=== PATIENT | male | born 1945 | race Caucasian/White ===

== ENCOUNTER 2023-11-13 15:06 | Outpatient (RCR) | payer MEDICARE, OTHER, SELFPAY | END 2023-11-13 23:59 | disposition home or self-care (01) | LOC: CRHB 15:06 | PROVIDERS: ATTENDING PHYSICIAN Surgery Vascular Surgery; FAMILY PHYSICIAN Family Medicine | DX: I70.213 Atherosclerosis of native arteries of extremities with intermittent claudication, bilateral legs (principal) | CPT/HCPCS: 93668 ==

== ENCOUNTER 2023-11-29 13:36 | Outpatient (RCR) | payer MEDICARE, OTHER, SELFPAY | END 2023-11-29 23:59 | disposition home or self-care (01) | LOC: CRHB 13:36 | PROVIDERS: ATTENDING PHYSICIAN Surgery Vascular Surgery | DX: I70.213 Atherosclerosis of native arteries of extremities with intermittent claudication, bilateral legs (principal) | CPT/HCPCS: 93668 ==

== ENCOUNTER → 2024-03-30 10:07 | Outpatient (REF) | payer MEDICARE, OTHER, SELFPAY | LOC: RCS 10:07 | PROVIDERS: ATTENDING PHYSICIAN Internal Medicine Cardiovascular Disease; FAMILY PHYSICIAN Family Medicine | DX: R00.2 Palpitations (principal) | CPT/HCPCS: 93225; 93226 ==

== ENCOUNTER → 2024-05-25 13:37 | Outpatient (REF) | payer MEDICARE, OTHER, SELFPAY | LOC: RAD 13:37 | PROVIDERS: ATTENDING PHYSICIAN Surgery Vascular Surgery; FAMILY PHYSICIAN Family Medicine | DX: I73.9 Peripheral vascular disease, unspecified (principal); I77.9 Disorder of arteries and arterioles, unspecified; I65.23 Occlusion and stenosis of bilateral carotid arteries | CPT/HCPCS: 93880; 93922; 93925 ==

== ENCOUNTER 2024-07-07 08:25 | Outpatient (RCR) | payer MEDICARE, OTHER, SELFPAY ==
[2024-07-07 08:30] VITALS: BP 128/88
[2024-07-07] MEDS: SODIUM BICARBONATE 1150 MEQ IV (08:45)
== END 2024-07-16 23:59 | disposition home or self-care (01) ==
LOC: OID 08:25
PROVIDERS: ATTENDING PHYSICIAN Surgery Vascular Surgery; FAMILY PHYSICIAN Family Medicine
DX: I73.9 Peripheral vascular disease, unspecified (principal); I77.9 Disorder of arteries and arterioles, unspecified; Z92.89 Personal history of other medical treatment
CPT/HCPCS: 70496; 70498; 96360; 96365; 96366; Q9967

== ENCOUNTER 2024-09-02 09:12 | Inpatient (IN) | payer MEDICARE, OTHER, SELFPAY ==
[2024-08-28 09:36] VITALS: BMI 27.4
[2024-08-28 10:02] LABS: APTT 32.5 Sec (23.4-35.0); INR 1.04; PT 13.9 Sec (11.4-14.6)
[2024-08-28 10:04] LABS: % Basophils 0.5 % (0-2); % Eosinophils 1.9 % (0-6); % Immature Granulocytes 0.3 % (0-0.5); % Monocytes 7.8 % (1.7-9.3); % Neutrophils 59.5 % (42.2-75.2); Absolute Eosinophils 0.1 10^3/uL (0-0.7); Absolute Lymphocytes 1.9 10^3/uL (1.2-3.4); Absolute Monocytes 0.5 10^3/uL (0.1-0.6); Absolute Neutrophils 3.8 10^3/uL (1.4-6.5); Hematocrit 31.5 % (39.0-52.0); Hemoglobin 10.3 g/dL (13.0-18.0); Mean Corp Hgb Conc. 32.7 g/dL (33.0-37.0); Mean Corpuscular Hgb 29.7 pg (27.0-31.0); Mean Corpuscular Volume 90.8 fL (80.0-94.0); Mean Platelet Volume 10.6 fL (7.4-10.4); Nucleated Red Blood Cells % 0 % (-); Platelet Count 204 10^3/uL (130-400); Red Blood Cell Count 3.47 10^6/uL (4.70-6.10); Red Cell Dist. Width 13.5 % (11.5-14.5); White Blood Cell Count 6.4 10^3/uL (4.8-10.8)
[2024-08-28 10:24] LABS: Blood Urea Nitrogen 37 mg/dl (9-20); Calcium 8.7 mg/dl (8.4-10.2); Carbon Dioxide 23 mmol/L (22-30); Chloride 105 mmol/L (98-107); Estimated Creatinine Clearance 28 ml/min; Glucose 109 mg/dl (70-99); Potassium 5.3 mmol/L (3.5-5.1); Sodium 138 mmol/L (135-145); eGFR 31.23
--- NOTE | 2024-08-28 11:01 | PTCARENOTE ---
Patients 08/28 Creat 2.1; GFR 31.23- Abraham @ Dr. Arshad office notified
[2024-09-02] VITALS (12 sets, daily range): BP systolic 102–188; BP diastolic 42–86; PULSE 60; BMI 27.5
[2024-09-02] MEDS: NSS 500 IV (10:21)
[2024-09-02] MEDS: PERIDEX 0.12% ORAL RINSE 15 ML PO (10:21)
[2024-09-02] MEDS: BACTROBAN NASAL 1 GRAM NASAL (10:21)
[2024-09-02 13:32] LABS: Blood Urea Nitrogen 31 mg/dl (9-20); Calcium 8.4 mg/dl (8.4-10.2); Carbon Dioxide 24 mmol/L (22-30); Chloride 109 mmol/L (98-107); Estimated Creatinine Clearance 39 ml/min; Glucose 102 mg/dl (70-99); Potassium 4.4 mmol/L (3.5-5.1); Sodium 139 mmol/L (135-145); eGFR 46.77
--- NOTE | 2024-09-02 14:43 | OR.RPT ---
Operative Report
Operative Report
PROCEDURE DATE: 09/02/2024
Preoperative diagnosis: Critical right carotid artery stenosis, asymptomatic.
Postoperative diagnosis: Same
Procedure: Right carotid endarterectomy with bovine pericardial patch angioplasty and intraoperative EEG/SSEP monitoring.
Surgeon: Jose
Machine Binding Folder: MADHAV Renae, required for all aspects of procedure including assistance with traction/countertraction, following of suture line, assistance with closure.
Complications: None
Anesthesia: General
Indications for procedure:
Severe right carotid artery stenosis, progressed on ultrasound, confirmed by CT scan. Risk/benefits/alternatives of revascularization all fully discussed. Patient understood all wished to proceed.
Description of procedure:
Patient was identified brought to the operating room placed on the table in supine position. After the adequate administration of anesthesia and perioperative antibiotics he was prepped and draped in the standard surgical fashion. A standard
preoperative timeout was undertaken and everybody was in agreement the plan. A standard longitudinal incision was made in the right neck that was carried through the skin subcutaneous tissue. Using the electrocautery dissection was carried through
the platysma muscle layer and then alongside the anterior medial border of the sternocleidomastoid muscle. Then using a combination of sharp dissection with the Metzenbaum scissors and electrocautery I dissected along the anterior medial border of
the internal jugular vein. The common facial vein branch was ligated between silk ties and then divided. I then deepened my retraction. The common carotid artery was identified and carefully dissected away from the surrounding structures take
great care to avoid any injury to the structures. A vessel loop was passed around it which was double looped, but not yet tightened. Note the vagus nerve was clearly visualized in its usual course posterior lateral to the common carotid artery,
and was protected from harm's way. There was an ansa branch coursing superior laterally to inferior/medially that was carefully teased off the common carotid artery and reflected laterally successfully. I did not need to sacrifice it.
I then continued my dissection up the common carotid artery to the bulb staying only on the anterior surface of the carotid artery. Then I carried the dissection up to the internal carotid artery and then to the distal internal carotid artery. I
identified where it was soft and carefully circumferentially dissected the internal carotid artery with minimal mobilization and passed a vessel loop around it. As noted on CT scan imaging, this point of dissection was approximately 2 cm distal to
the origin of the internal carotid artery. Note the hypoglossal nerve was clearly visualized and was preserved from harm's way. The patient was given an appropriate dose of heparin 8000 units. Next I dissected the anterior surface of the external
carotid artery and superior thyroid branches (there was 2 branches in the vicinity of the superior thyroid artery that were both controlled with a single vessel loop). These were then carefully circumferentially dissected with minimal mobilization
and vessel loops passed around these which were double looped but not yet tightened. After 3 minutes of heparin circulation time and confirmation of optimization of the blood pressure with my anesthesiology colleagues, I clamped the distal internal
carotid artery where it was soft. There was no immediate EEG or SSEP changes. After 1 minute of test clamp time there was no changes noted. Therefore at this point, the vessel loops on the external carotid artery and superior thyroid branches
were tightened and the common carotid artery was clamped where it was soft proximally. An arteriotomy was made on the common carotid artery with an 11 blade and extended using a Berumen scissor. I extended the arteriotomy onto the mid to distal
internal carotid artery. There was eccentrically calcified plaque in the carotid bulb extending into the internal carotid artery. However it did not create a severe stenosis until a point about 1.5 to 2 cm onto the internal carotid artery (as
noted on CT scan) where it resulted in a significant stenosis. A Boley was then used to endarterectomized the plaque. An endarterectomy plane was created, and the plaque was then endarterectomized. Distally I feathered the plaque out to a nice
clean endpoint in the distal internal carotid artery. Next I endarterectomized the intima back to normal intima in the common carotid artery, and the intima was cut flush there. I then grasped the plaque and everted plaque out of the origin of the
external carotid artery. As such the plaque was removed intact en block. The plaque was then sent off for specimen. The origin of the external carotid artery was carefully visualized and any fine debris were removed with fine forceps. Proximal
and distal endpoints were then carefully inspected. Any fine debris was removed with fine forceps, and the intima was noted to be nicely adherent proximally and distally. Next any fine debris were removed throughout the endarterectomy bed with
fine forceps. I then flushed heparinized saline. I was very satisfied. Then, I used a bovine pericardial patch to sew a patch angioplasty with a running 6-0 Prolene suture. Prior to completing and tying down my suture line, I backbled
sequentially each branch and reclamped each branch prior to unclamping the next branch. I then irrigated with heparinized saline. Then I completed and tied down my suture line. We then restored flow in the common carotid and external carotid
arteries. Finally, we released flow in the internal carotid artery. There was excellent pulsatile flow in all 3 vessels. There was an excellent Doppler signal in the internal carotid artery distal to the patch with a good normal low resistance
Doppler signal. There was a good Doppler signal in the external carotid artery as well. A couple 6-0 Prolene [id number] sutures were placed along a single bleeding point along the suture line. Protamine was given to reverse the heparin.
Hemostasis was completely achieved. We then irrigated and confirmed full hemostasis. We then closed in layers with 2-0 Vicryl layer to reapproximate the sternocleidomastoid muscle, followed by 3-0 Vicryl platysma muscle running layer, followed by
4-0 Monocryl subcuticular stitch. Dermabond was applied. The patient tolerated procedure well. He awoke moving all extremities to command with tongue in the midline.
[2024-09-02] MEDS: CARDENE 200 IV (15:00)
--- NOTE | 2024-09-02 15:16 | CON.INTV ---
Consultation
Consultation Request
Date/Time Consultation Requested: 09/02/2024 - 144
Date/Time Consultation Performed: 09/02/2024 - 151
Requesting Provider: GARRY Osorio
Performing Provider: Guillermo Degroot MD
Reason for Consultation: s/p right carotid endarterectomy
Medical History
-
Chief Complaint: Elective R-CEA
History of Present Illness:
79-year-old male with a past medical history of of RUBY on CPAP, hiatal hernia, BPH, PVD, [place]-Schlatter disease, hypertension, hyperlipidemia, CKD, CAD s/p CABG, carotid artery disease and diverticulosis who presents for elective right carotid
endarterectomy. Patient known to the vascular surgery service with last visit on 07/14/[address] Garcia. Patient had a CTA head/neck on 07/07/2024 showing >70% stenosis of the proximal right internal carotid artery with no acute intracranial
process. Vascular intervention was offered for stroke prevention. Risks and benefits were discussed and the patient has agreed to endarterectomy. Today, he underwent a right-sided carotid endarterectomy with bovine pericardial patch angioplasty
with intraoperative EEG/SSEP monitoring. There were no complications and he was transferred to the ICU postoperatively for further care. Assistant Controller services consulted for additional management/recommendations.
When I saw the patient he was resting in bed in no acute distress. Patient's spouse, Sb, at bedside and all questions were answered. Patient currently on 2 L/min nasal cannula saturating 90%. Heart rate 54 and BP 133/53. He has some pain at his
right side of his neck where the surgery was, otherwise denies shortness of breath, chest pain, ORELLANA, abdominal pain, nausea, fevers or chills.
Of note patient follows with us in the [facility] office with last visit on 08/19/2023 with GARRY Reyes. He follows for RUBY on CPAP. His baseline sleep study was done in May 2005 showing mild RUBY with an overall AHI of 11.2 events/hour with
an oxygen desaturation nika of 94%. Of note, his REM-related AHI was moderate at 26.7 events/hour he is on CPAP of 10 cmH2O. He was told to follow-up with us in 1 year.
PMHx:BPH, Hx of SCC, arthritis, PVD, perianal genital warts s/p excision, Hx of BCC, GERD, RUBY on CPAP, hiatal hernia, colonic polyps, diverticulosis, [place]-Schlatter disease since age 12, HTN, HLD, RA, seasonal allergies, carotid artery disease,
CAD s/p CABG, CKD, femoral artery calcification
PSHx: Herniography, CABG, inguinal hernia repair x 4, hemorrhoidectomy, Mohs surgery, lower extremity arterial mapping
Past Medical History
Past Medical History: Other (Above as per HPI)
Past Surgical History: Other (Above as per HPI)
Social History
Tobacco: Former Smoker (Smoked briefly in college - smoking a few cigarettes/day for few years, quit in his 20s)
Alcohol: Occasional (Rare wine)
Drug: None
Family History
Family History: CAD (Mother + brothers: History of CABG) and Other (Father: hemochromatosis)
Allergies / Home Medications
Allergies
Allergy/AdvReac Type Severity Reaction Status Date / Time
No Known Allergies Allergy Verified 09/02/24 10:02
Home Medications
�Medication �Instructions �Recorded �Confirmed �Last Taken �Type
aspirin 81 mg tablet,delayed 81 mg PO QPM 11/14/18 09/02/24 08/29/24 08:00 History
release (Ecotrin Low Strength)
atorvastatin 80 mg tablet 80 mg PO QPM 11/14/18 09/02/24 09/01/24 22:30 History
coenzyme Q10 100 mg capsule 100 mg PO DAILY 11/14/18 09/02/24 08/29/24 08:00 History
doxazosin 8 mg tablet 8 mg PO DAILY 11/14/18 09/02/24 09/01/24 22:30 History
ezetimibe 10 mg tablet (Zetia) 10 mg PO QPM 11/14/18 09/02/24 09/01/24 22:30 History
losartan 50 mg tablet 50 mg PO BID 11/14/18 09/02/24 09/02/24 06:45 History
metoprolol tartrate 50 mg tablet 50 mg PO DAILY 11/14/18 09/02/24 09/02/24 06:45 History
omeprazole 20 mg capsule,delayed 20 mg PO DAILY 11/14/18 09/02/24 09/01/24 08:30 History
release
hydralazine 50 mg tablet 50 mg PO TID 07/07/24 09/02/24 09/02/24 06:45 History
hydrochlorothiazide 25 mg tablet 25 mg PO DAILY 07/07/24 09/02/24 09/02/24 06:45 History
Review of Systems
-
History Source: Patient
All other systems: Negative unless noted
Vitals / Labs / Diagnostic Testing
Vital Signs
Temp Pulse Resp BP Pulse Ox
98.3 F 62 16 102/45 91
09/02/24 15:30 09/02/24 15:30 09/02/24 15:30 09/02/24 15:30 09/02/24 15:30
Lab Data
09/02/24 15:05
09/02/24 15:05
Laboratory Results
09/02/24
15:05
PT 15.5 H
INR 1.18
Diagnostic Testing:
Physical Exam
-
HEENT: Anicteric and Other (Vertical incision ciara seen on right anterior)
Cardiovascular: S1/S2, Murmur (RODY heard across precordium, grade III/IV), Rub (negative) and Peripheral Edema (negative)
Respiratory: Wheeze (negative), Rales (negative), Rhonchi (negative) and Accessory Resp Muscle Use (negative)
GI: Soft, Non Distended, Non Tender and Normal Bowel Sounds
Neurology: AO x 3 and Tremors (negative)
Skin: Warm and Dry
General: Respiratory Distress (negative), Comfortable, Fever (negative) and Chills (negative)
Assessment
-
Assessment: 79-year-old male with a past medical history of of RUBY on CPAP, hiatal hernia, BPH, PVD, [place]-Schlatter disease, hypertension, hyperlipidemia, CKD, CAD s/p CABG, carotid artery disease and diverticulosis who presents for elective
right carotid endarterectomy. Patient known to the vascular surgery service with last visit on 07/14/[address] Garcia. Patient had a CTA head/neck on 07/07/2024 showing >70% stenosis of the proximal right internal carotid artery with no acute
intracranial process. Vascular intervention was offered for stroke prevention. Risks and benefits were discussed and the patient has agreed to endarterectomy. Today, he underwent a right-sided carotid endarterectomy with bovine pericardial patch
angioplasty with intraoperative EEG/SSEP monitoring. There were no complications and he was transferred to the ICU postoperatively for further care. Assistant Controller services consulted for additional management/recommendations.
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
carotid artery disease, CAD s/p CABG, CKD, femoral artery calcification
Impression:
#Critical right carotid artery stenosis s/p right carotid endarterectomy with bovine pericardial patch angioplasty with intraoperative EEG/SSEP monitoring (POD #0)
#Acute on chronic anemia
#CKD III
#CAD s/p CABG
#History of [place]-Schlatter disease
#RUBY on CPAP
#History of diverticulosis
#Hypertension
#Hyperlipidemia
#History of RA
#GERD
Plan:
Postoperative surgical intensive care unit monitoring
Supplemental oxygen as needed to maintain SpO2 >90-94%
prn nebulized bronchodilators � not currently bronchospastic
Incentive spirometry encouraged 10x per hour for at least 4 hrs a day
Aspiration precautions
Pain control
Continue with CPAP at 10 cmH2O with sleep while hospitalized
Neuro and vascular checks per protocol
Maintain MAP>65
Replete electrolytes with K>4, Mg>2
Maintain euglycemia with goal BG 140-180
Vascular surgery following-correspondence and operative notes reviewed
Transfuse blood products as needed to keep Hb>7g/dL, and plt>50k (given post-operative status)
DVT prophylaxis
Early nutrition
Early mobilization
Patient recommended to continue following up with our pulmonary/sleep office as last visit was on 08/19/2023 with GARRY Reyes.
Critical care statement: A total of 41 minutes of critical care time was provided for this patient today. This includes management of unstable vital signs, evaluation of the patient at bedside, reviewing the patient's pertinent medical records
including radiographs, microbiology, laboratory evaluations, and discussion with primary team, consultants, pharmacy, nutrition, physical therapy, case management, charge nurse, critical care nursing, and respiratory therapy.
[2024-09-02 15:28] LABS: Hematocrit 28.6 % (39.0-52.0); Hemoglobin 9.4 g/dL (13.0-18.0); Mean Corp Hgb Conc. 32.9 g/dL (33.0-37.0); Mean Corpuscular Hgb 30.4 pg (27.0-31.0); Mean Corpuscular Volume 92.6 fL (80.0-94.0); Mean Platelet Volume 10.5 fL (7.4-10.4); Platelet Count 183 10^3/uL (130-400); Red Blood Cell Count 3.09 10^6/uL (4.70-6.10); Red Cell Dist. Width 13.6 % (11.5-14.5)
[2024-09-02 15:43] LABS: Blood Urea Nitrogen 29 mg/dl (9-20); Calcium 8.2 mg/dl (8.4-10.2); Carbon Dioxide 23 mmol/L (22-30); Chloride 108 mmol/L (98-107); Estimated Creatinine Clearance 37 ml/min; Glucose 129 mg/dl (70-99); Potassium 4.7 mmol/L (3.5-5.1); Sodium 138 mmol/L (135-145); eGFR 43.29
[2024-09-02 15:46] LABS: INR 1.18; PT 15.5 Sec (11.4-14.6)
--- NOTE | 2024-09-02 16:21 | PTCARENOTE ---
Received pt from pacu s/p r cea. Incision wnl. Neurologically intact. Pt c/o 12/24 neck pain. Deneis headache/cp/sob/nausea. Admission completed. Otherwise see worklist
[2024-09-02] MEDS: TYLENOL 650 MG PO (16:22)
[2024-09-02] MEDS: NSS 1000 IV (16:22)
[2024-09-02] MEDS: APRESOLINE 50 MG PO ×2 (16:46→21:07)
[2024-09-02] MEDS: ZETIA 10 MG PO (18:05)
[2024-09-02] MEDS: LIPITOR 80 MG PO (18:05)
[2024-09-02] MEDS: ASPIR LOW (ENTERIC COATED) 81 MG PO (18:05)
--- NOTE | 2024-09-02 19:00 | PTCARENOTE ---
received pt. oriented x3. c/o mild R neck pain at CEA site. site with minimal swelling/ecchymosis. on RA, wears CPAP HS. SBP goal 100-165. arterial line leveled and zeroed. SB on monitor. chol lowering diet, ate dinner. urinal at bedside. IVF
infusing. meds given. call walker within reach. care ongoing.
[2024-09-02] MEDS: TOPROL XL 50 MG PO (21:07)
[2024-09-02] MEDS: COZAAR 50 MG PO (21:07)
[2024-09-02] MEDS: HEPARIN 5000 UNITS SC (21:07)
[2024-09-02] MEDS: CARDURA 8 MG PO (21:08)
[2024-09-03] VITALS (13 sets, daily range): BP systolic 131–188; BP diastolic 5–82; PULSE 49; BMI 27.4
--- NOTE | 2024-09-03 | PTCARENOTE ---
no changes in assessment. pt on cpap overnight. call walker within reach. SBP within goal range. care ongoing
[2024-09-03] MEDS: NSS 1000 IV (03:08)
[2024-09-03 03:21] LABS: Mean Corp Hgb Conc. 32.1 g/dL (33.0-37.0); Mean Corpuscular Hgb 30.4 pg (27.0-31.0); Mean Corpuscular Volume 94.6 fL (80.0-94.0); Mean Platelet Volume 10.7 fL (7.4-10.4); Platelet Count 183 10^3/uL (130-400); Red Blood Cell Count 2.96 10^6/uL (4.70-6.10); Red Cell Dist. Width 13.6 % (11.5-14.5); White Blood Cell Count 8.7 10^3/uL (4.8-10.8)
[2024-09-03 03:36] LABS: INR 1.14; PT 15.2 Sec (11.4-14.6)
--- NOTE | 2024-09-03 04:00 | PTCARENOTE ---
assessment unchanged. AM labs sent. pt remains on CPAP. c/o mild R neck pain but denies pain medicine at this time. call walker within reach
[2024-09-03 04:05] LABS: Blood Urea Nitrogen 36 mg/dl (9-20); Calcium 8.2 mg/dl (8.4-10.2); Carbon Dioxide 20 mmol/L (22-30); Chloride 108 mmol/L (98-107); Estimated Creatinine Clearance 35 ml/min; Glucose 123 mg/dl (70-99); Potassium 5.1 mmol/L (3.5-5.1); Sodium 137 mmol/L (135-145); eGFR 40.25
[2024-09-03] MEDS: COZAAR 50 MG PO (07:34)
[2024-09-03] MEDS: HEPARIN 5000 UNITS SC (07:34)
[2024-09-03] MEDS: PROTONIX 40 MG PO (07:35)
[2024-09-03] MEDS: APRESOLINE 50 MG PO ×2 (07:35→15:22)
[2024-09-03] MEDS: ORETIC 25 MG PO (07:35)
[2024-09-03] MEDS: TOPROL XL 50 MG PO (07:36)
--- NOTE | 2024-09-03 07:52 | W.PN.VS ---
Addendum entered and electronically signed by Eric Garcia MD 09/03/24 13:37:
Seen and examined with MADHAV Renae earlier this a.m. Patient was without significant complaints. Right neck incision clean dry and intact. Neurologically no focal deficits, moves all extremities well, tongue midline. Plan/as discussed and noted
below.
Original Note:
Today's Communication / Plan
-
Patient seen and examined at bedside with Dr. Eric Garcia, below plan reviewed with attending.
Assessment/Plan
-
Assessment: 79-year-old male POD #1 right carotid endarterectomy
Plan:
Discontinue arterial line
Discontinue IV fluids
Can get out of bed to chair with progression of ambulation as tolerated
Possible discharge later this afternoon
Subjective Data
-
Date of Service: September 03, 2024
Patient seen and examined at bedside, offers no complaints. Denies headache, nausea, vomiting, fever, and chills. Denies dysphagia and tolerating p.o. diet.
Objective Data
-
Vital Signs
Temp Pulse Resp BP Pulse Ox
98.5 F 54 12 165/56 95
09/03/24 04:40 09/03/24 07:36 09/03/24 06:00 09/03/24 07:36 09/03/24 06:00
Intake and Output
09/02/24 09/03/24 09/04/24
06:59 06:59 06:59
Intake Total 2130 / 2130
Output Total 700 / 700
Balance 1430 / 1430
Intake:
Oral fluids 960 / 960
IV fluids (Total) 1170 / 1170
NSS 1170 / 1170
Output:
Urine, Voided 700 / 700
Lab Results
09/03/24 03:13
09/03/24 03:13
Calcium 8.2 mg/dl (8.4-10.2) L 09/03/24 03:13
Physical Exam
-
Awake, alert, and oriented x 3, no apparent distress resting in bed comfortably
Right neck surgical incision CDI, tongue midline, face symmetrical
No tachycardia
No dyspnea on room air
Abdomen flat, nontender, nondistended
Moves bilateral upper extremities and lower extremities with equal strength spontaneously and to command
--- NOTE | 2024-09-03 08:26 | W.PN.INTV ---
Today's Communication / Plan
Recommendations
Pain control
Up OOB as tolerated
Maintain SpO2 >90-94%
PAP with sleep
Encourage incentive spirometer use 10x/hr for at least 4 hrs a day
Outpatient pulmonary/sleep office follow-up
Patient likely being discharged home today. Once discharged home or transferred to telemetry then we will sign off at that time. Please call back if you have any additional questions or concerns.
Assessment
-
Assessment: 79-year-old male with a past medical history of of RUBY on CPAP, hiatal hernia, BPH, PVD, [place]-Schlatter disease, hypertension, hyperlipidemia, CKD, CAD s/p CABG, carotid artery disease and diverticulosis who presents for elective
right carotid endarterectomy. Patient known to the vascular surgery service with last visit on 07/14/[address] Garcia. Patient had a CTA head/neck on 07/07/2024 showing >70% stenosis of the proximal right internal carotid artery with no acute
intracranial process. Vascular intervention was offered for stroke prevention. Risks and benefits were discussed and the patient has agreed to endarterectomy. Today, he underwent a right-sided carotid endarterectomy with bovine pericardial patch
angioplasty with intraoperative EEG/SSEP monitoring. There were no complications and he was transferred to the ICU postoperatively for further care. Director Of Federal Sales services consulted for additional management/recommendations.
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
carotid artery disease, CAD s/p CABG, CKD, femoral artery calcification
Impression:
#Critical right carotid artery stenosis s/p right carotid endarterectomy with bovine pericardial patch angioplasty with intraoperative EEG/SSEP monitoring (POD #1)
#Acute on chronic anemia
#CKD III
#CAD s/p CABG
#History of [place]-Schlatter disease
#RUBY on CPAP
#History of diverticulosis
#Hypertension
#Hyperlipidemia
#History of RA
#GERD
Plan:
Postoperative surgical intensive care unit monitoring
Maintain SpO2 >90-94% - currently on room air breathing comfortably
prn nebulized bronchodilators � not currently bronchospastic
Incentive spirometry encouraged 10x per hour for at least 4 hrs a day
Aspiration precautions
Pain control
Continue with CPAP at 10 cmH2O with sleep while hospitalized
- Can try a different mask or have the patient bring in his own machine/equipment while he remains hospitalized --> he is likely going home today so this is a moot point
Neuro and vascular checks per protocol
Maintain MAP>65
Replete electrolytes with K>4, Mg>2
Maintain euglycemia with goal BG 140-180
Vascular surgery following-correspondence and operative notes reviewed
Transfuse blood products as needed to keep Hb>7g/dL, and plt>50k (given post-operative status)
DVT prophylaxis
Early nutrition
Early mobilization
Patient recommended to continue following up with our pulmonary/sleep office as last visit was on 08/19/2023 with GARRY Reyes.
Patient likely being discharged home today. Once discharged home or transferred to telemetry then we will sign off at that time. Thank you for allowing us to be involved in the care of this patient, and please call back if you have any additional
questions or concerns.
Total time spent today was 43 minutes for this encounter. Time includes reviewing laboratory test/imaging results, reviewing pertinent medical records, obtaining and reviewing medical history, performing an appropriate exam, ordering medications,
tests and procedures. Time also includes documentation of this encounter, coordinating patient care and communicating with other healthcare professionals. Total time does not include separately billed tests performed on this date of service.
Subjective Dataa
Subjective Data
Date of Service:
Date of Service: September 03, 2024
Chief Complaint: Director Of Federal Sales Follow Up
Subjective:
Patient seen and evaluated today at bedside. Did not tolerate his CPAP at 10 cmH2O last night as the mask was not fitting him well and there was large leaks, as per patient. This morning he is sitting in a chair no acute distress. Currently
saturating 97% on room air, heart rate 69 and BP 188/66. He feels well overall. Has some mild tenderness to his right neck at his surgical site, otherwise denies ORELLANA, shortness of breath, chest pain, abdominal pain, nausea, fevers or chills.
Review of Systems
General: Other (Negative unless mentioned above)
Objective Data
Data Reviewed
Vital Signs / I&O / Oxygen:
Vital Signs
Temp Pulse Resp BP Pulse Ox
97.5 F 54 12 165/56 95
09/03/24 07:50 09/03/24 07:36 09/03/24 06:00 09/03/24 07:36 09/03/24 06:00
Intake and Output
09/02/24 09/03/24 09/04/24
06:59 06:59 06:59
Intake Total 2130 / 2130
Output Total 700 / 700
Balance 1430 / 1430
SaO2 95
Nasal Cannula flow liters per 2
minute
Physical Exam
General: Respiratory Distress (negative), Comfortable, Chills (negative) and Sweats (negative)
HEENT: Normocephalic, Anicteric and Other (Right anterior neck surgical incision which is c/d/i)
Cardiovascular: S1-S2, Murmur (RODY heard across precordium, loudest at RUSB), Rub (negative) and Peripheral Edema (negative)
Respiratory: Clear, Wheeze (negative), Crackles (negative), Rhonchi (negative), Accessory Resp Muscle Use (negative) and Stridor (negative)
GI: Soft, Non Distended, Non Tender and Normal Bowel Sounds
Neurology: AO x 3 and Tremors (negative)
Skin: Warm, Dry, Cyanosis (negative) and Jaundice (negative)
Labs/Micro/Reports
Lab Data
09/03/24 03:13
09/03/24 03:13
Laboratory Results
09/02/24 09/03/24
15:05 03:13
PT 15.5 H 15.2 H
INR 1.18 1.14
APTT 33.0
--- NOTE | 2024-09-03 10:34 | CM ---
CM following re: discharge planning.
Reviewed pt's chart, met with pt.
Pt is an 79 year old male, admitted with primary dx of POD #1 right carotid endarterectomy. Per vascular Surgery, pt possibly will be discharged later afternoon. Pt is aware, expressed his agreement and he stated his spouse will transport home. IMM
reviewed, placed on chart, pt has a copy.
Pt reports he livers with spouse 2SH, 2 steps to enter, has no children, has 2 cats. 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 No VN or SNF history.
PCP: Carmencita Cordoba
Pharmacy: [facility].
D/C plan: home no needs. Spouse to transport.
No after care VN services needs identified.
--- NOTE | 2024-09-03 10:43 | PTCARENOTE ---
pt awake and alert , mild co pain at L neck , denies need for pain medications , NSR on monitor , pt tolerating diet , voiding in commode , R karely mack out at 0800 , DC IVF as ordered, pt BP via cuff 174/57 at 0800 , pt had all antihypertensives
given this am , now BP at 10:45 down to 131/59 ,pt states this is his normal BP at home , for possible DC later today
--- NOTE | 2024-09-03 12:34 | PTCARENOTE ---
pt ambulated hallway without difficulty , eating lunch , voiding in bathroom
--- NOTE | 2024-09-03 12:42 | W.DS.TRANS ---
DC Summary - [employer]
-
Discharge Instructions:
Discharge Diagnosis/Procedures Right carotid endarterectomy
Diet As tolerated,Low Cholesterol
Activity No strenuous activity
Driving Restrictions Not until seen by your Dr
Bathing Restrictions OK to Shower
Instructions:
Stand-Alone Forms: DC Instr - Vascular OR
Changes to Home Medications: No
Discharge Medications:
DC Medications w/original date entered in [facility]
aspirin 81 mg tablet,delayed release (Ecotrin Low Strength) 81 mg PO QPM Blood Clot Prevention/Tx 11/14/18
atorvastatin 80 mg tablet 80 mg PO QPM High Cholesterol 11/14/18
coenzyme Q10 100 mg capsule 100 mg PO DAILY Supplement 11/14/18
doxazosin 8 mg tablet 8 mg PO HS Urinary Issue 11/14/18
ezetimibe 10 mg tablet (Zetia) 10 mg PO HS High Cholesterol 11/14/18
losartan 50 mg tablet 50 mg PO BID Blood Pressure 11/14/18
omeprazole 20 mg capsule,delayed release 20 mg PO DAILY Gastrointestinal Issue 11/14/18
hydralazine 50 mg tablet 50 mg PO TID Blood Pressure 07/07/24
hydrochlorothiazide 25 mg tablet 25 mg PO DAILY Blood Pressure 07/07/24
metoprolol succinate 50 mg tablet,extended release 24 hr 50 mg PO BID Heart Disease/Condition 09/02/24
Home Medication Changes
Pending Results: No
--- NOTE | 2024-09-03 13:22 | PTCARENOTE ---
pt BP after ambulation up to 188/66 and asymptomatic , he is now 151/59 ,
[2024-09-03] MEDS: PREVNAR 20 0.5 ML IM (14:25)
--- NOTE | 2024-09-03 16:16 | PTCARENOTE ---
pt written for DC , IVs removed , DC instructions given to pt and significant other and both verbalized understanding
== END 2024-09-03 18:06 | disposition home or self-care (01) | DRG 39 ==
LOC: ICU 09:12
PROVIDERS: Nurse Practitioner; ADMITTING PHYSICIAN Surgery Vascular Surgery; CONSULT PHYSICIAN Internal Medicine Critical Care Medicine; FAMILY PHYSICIAN Family Medicine
PROC: 03UH0KZ Supplement Right Common Carotid Artery with Nonautologous Tissue Substitute, Open Approach (ICD-10-PCS; 2024-09-02)
PROC: 03CH0ZZ Extirpation of Matter from Right Common Carotid Artery, Open Approach (ICD-10-PCS; 2024-09-02)
DX: I65.21 Occlusion and stenosis of right carotid artery (principal); I12.9 Hypertensive chronic kidney disease with stage 1 through stage 4 chronic kidney disease, or unspecified chronic kidney disease; N18.30 Chronic kidney disease, stage 3 unspecified; E78.5 Hyperlipidemia, unspecified; K21.9 Gastro-esophageal reflux disease without esophagitis; G47.33 Obstructive sleep apnea (adult) (pediatric); D64.9 Anemia, unspecified; Z87.891 Personal history of nicotine dependence
CPT/HCPCS: 88304; 88311; 35301; 36415; 71046; 80048; 85025; 85027; 85610; 85730; 86850; 86900; 86901; 90677; 94660; 95938; 95941; 95955; G0009

== ENCOUNTER → 2024-10-09 10:14 | Outpatient (REF) | payer MEDICARE, OTHER, SELFPAY | LOC: RAD 10:14 | PROVIDERS: ATTENDING PHYSICIAN Registered Nurse | DX: I77.9 Disorder of arteries and arterioles, unspecified (principal); I25.10 Atherosclerotic heart disease of native coronary artery without angina pectoris; I65.23 Occlusion and stenosis of bilateral carotid arteries | CPT/HCPCS: 93880 ==

== ENCOUNTER → 2024-10-26 08:18 | Outpatient (REF) | payer MEDICARE, OTHER, SELFPAY | LOC: RAD 08:18 | PROVIDERS: ATTENDING PHYSICIAN Specialist; FAMILY PHYSICIAN Family Medicine | DX: I1A.0 Resistant hypertension (principal) | CPT/HCPCS: 93975 ==

== ENCOUNTER → 2025-04-05 12:41 | Outpatient (REF) | payer MEDICARE, OTHER, SELFPAY | LOC: RAD 12:41 | PROVIDERS: ATTENDING PHYSICIAN Surgery Vascular Surgery; FAMILY PHYSICIAN Family Medicine | DX: I77.9 Disorder of arteries and arterioles, unspecified (principal); I73.9 Peripheral vascular disease, unspecified; I65.21 Occlusion and stenosis of right carotid artery | CPT/HCPCS: 93880; 93922; 93925 ==